=== PATIENT | male | born 1965 | race Caucasian/White ===

== ENCOUNTER 2017-03-09 07:13 | Emergency (ER) | payer OTHER ==
[2017-03-09 07:41] LABS: Appearance,Urine Clear (Clear); Bilirubin,Urine Negative (Negative); Glucose,Urine (UA) Negative (Negative); Ketones,Urine Negative (Negative); Leukocyte Esterase,Urine Negative (Negative); Nitrite,Urine Negative (Negative); PH, Urine 8.5 (5.0-8.0); Protein,Urine Trace (Negative); UA Billing (MACRO vs. MICRO) CHEM; Urobilinogen,Urine <2.0 mg/dL (<2.0)
[2017-03-09] MEDS ORDERED: PANTOPRAZOLE 40 MG/10 ML VIAL IVP STA (07:42)
[2017-03-09] MEDS ORDERED: SODIUM CHLORIDE 0.9% 1,000 ML IV STA (07:42)
[2017-03-09] MEDS ORDERED: METOCLOPRAMIDE 5 MG/ML 2 ML VIAL IVP STA (07:42)
[2017-03-09] MEDS ORDERED: KETOROLAC 30 MG/ML 1 ML VIAL IVP STA (07:42)
--- NOTE | 2017-03-09 07:46 | ED ---
General Adult HPI - General Chief complaint: Abdominal Pain Stated complaint: side pain Time Seen by Provider: 03/09/17 07:29 Source: patient, family, RN notes reviewed Mode of arrival: ambulatory Limitations: no limitations - History of Present Illness Initial comments: Patient is a pleasant 61-year-old male presenting to the emergency Department with right side pain. Onset of symptoms was yesterday and mild. Symptoms worsened last night and then have worsened throughout the night. Discomfort became severe prior to arrival. Patient became nauseated and did have a mild amount of emesis. Since that time discomfort has improved is only moderate at this time, rated 5 or 6/10. No history of similar symptoms previously. Discomfort is on the right side, more upper abdomen. No fevers. Patient has had mild dysuria since yesterday. - Related Data Previous Rx's Medication Instructions Recorded Hydrocodone/Acetaminophen [[place] 2 each PO Q6HR PRN #20 tab 03/09/17 5-325] Metoclopramide HCl [Reglan] 10 mg PO Q6HR PRN #15 tablet 03/09/17 Tamsulosin [Flomax] 0.4 mg PO DAILY #14 cap 03/09/17 Allergies Allergy/AdvReac Type Severity Reaction Status Date / Time No Known Allergies Allergy Verified 03/09/17 08:15 Review of Systems ROS Statement: Those systems with pertinent positive or pertinent negative responses have been documented in the HPI. ROS Other: All systems not noted in ROS Statement are negative. Constitutional: Denies: fever Eyes: Denies: eye pain ENT: Denies: ear pain Respiratory: Denies: cough, dyspnea Cardiovascular: Denies: chest pain, palpitations Endocrine: Denies: fatigue Gastrointestinal: Reports: abdominal pain, nausea, vomiting. Denies: diarrhea, constipation Genitourinary: Reports: dysuria. Denies: frequency, hematuria Musculoskeletal: Denies: back pain Skin: Denies: rash Neurological: Denies: weakness Past Medical History Past Medical History: Diabetes Mellitus, Hypertension History of Any Multi-Drug Resistant Organisms: None Reported Past Surgical History: Back Surgery, Cholecystectomy Past Psychological History: No Psychological Hx Reported Smoking Status: Current some day smoker Past Alcohol Use History: Rare Past Drug Use History: None Reported General Exam Limitations: no limitations General appearance: alert, in no apparent distress Head exam: Present: atraumatic Eye exam: Present: normal appearance, PERRL ENT exam: Present: normal oropharynx Neck exam: Present: normal inspection Respiratory exam: Present: normal lung sounds bilaterally Cardiovascular Exam: Present: regular rate, normal rhythm Expanded Peripheral pulses: 2+: Posterior Tibialis (R), Posterior Tibialis (L) GI/Abdominal exam: Present: soft, tenderness (Mild tenderness right flank/upper abdomen), normal bowel sounds. Absent: distended, guarding, rebound, rigid, pulsatile mass Extremities exam: Present: normal inspection. Absent: pedal edema, calf tenderness Back exam: Present: normal inspection. Absent: tenderness, CVA tenderness (R) Neurological exam: Present: alert Psychiatric exam: Present: normal affect, normal mood Skin exam: Present: normal color Course Vital Signs 03/09/17 07:15 Temperature 97.5 F L Pulse Rate 72 Respiratory 20 Rate Blood Pressure 158/89 O2 Sat by Pulse 98 Oximetry Medical Decision Making - Medical Decision Making Patient reevaluated and symptom-free. Patient resting comfortably in bed. Patient and family updated on results including pulmonary nodule and need for follow-up with this. - Lab Data Result diagrams: 03/09/17 07:50 03/09/17 07:50 Lab Results 03/09/17 03/09/17 03/09/17 Range/Units 07:21 07:50 07:50 WBC 5.1 (3.8-10.6) k/uL RBC 5.12 (4.30-5.90) m/uL Hgb 16.1 (13.0-17.5) gm/dL Hct 46.7 (39.0-53.0) % MCV 91.3 (80.0-100.0) fL MCH 31.4 (25.0-35.0) pg MCHC 34.4 (31.0-37.0) g/dL RDW 13.1 (11.5-15.5) % Plt Count 203 (150-450) k/uL Neutrophils % 69 % Lymphocytes % 18 % Monocytes % 9 % Eosinophils % 2 % Basophils % 0 % Neutrophils # 3.5 (1.3-7.7) k/uL Lymphocytes # 0.9 L (1.0-4.8) k/uL Monocytes # 0.4 (0-1.0) k/uL Eosinophils # 0.1 (0-0.7) k/uL Basophils # 0.0 (0-0.2) k/uL PT (9.0-12.0) sec INR (<1.1) APTT (22.0-30.0) sec Sodium 146 H (137-145) mmol/L Potassium 3.9 (3.5-5.1) mmol/L Chloride 106 (98-107) mmol/L Carbon Dioxide 32 H (22-30) mmol/L Anion Gap 8 mmol/L BUN 20 (9-20) mg/dL Creatinine 1.06 (0.66-1.25) mg/dL Est GFR (MDRD) Af Amer >60 (>60 ml/min/1.73 sqM) Est GFR (MDRD) Non-Af >60 (>60 ml/min/1.73 sqM) Glucose 156 H (74-99) mg/dL Calcium 8.8 (8.4-10.2) mg/dL Total Bilirubin 0.9 (0.2-1.3) mg/dL AST 34 (17-59) U/L ALT 37 (21-72) U/L Alkaline Phosphatase 74 (38-126) U/L Total Protein 6.8 (6.3-8.2) g/dL Albumin 3.8 (3.5-5.0) g/dL Amylase 62 (30-110) U/L Lipase 163 (23-300) U/L Urine Color Light Yellow Urine Appearance Clear (Clear) Urine pH 8.5 H (5.0-8.0) Ur Specific [place] 1.010 (1.001-1.035) Urine Protein Trace H (Negative) Urine Glucose (UA) Negative (Negative) Urine Ketones Negative (Negative) Urine Blood Negative (Negative) Urine Nitrite Negative (Negative) Urine Bilirubin Negative (Negative) Urine Urobilinogen <2.0 (<2.0) mg/dL Ur Leukocyte Esterase Negative (Negative) 03/09/17 Range/Units 07:50 WBC (3.8-10.6) k/uL RBC (4.30-5.90) m/uL Hgb (13.0-17.5) gm/dL Hct (39.0-53.0) % MCV (80.0-100.0) fL MCH (25.0-35.0) pg MCHC (31.0-37.0) g/dL RDW (11.5-15.5) % Plt Count (150-450) k/uL Neutrophils % % Lymphocytes % % Monocytes % % Eosinophils % % Basophils % % Neutrophils # (1.3-7.7) k/uL Lymphocytes # (1.0-4.8) k/uL Monocytes # (0-1.0) k/uL Eosinophils # (0-0.7) k/uL Basophils # (0-0.2) k/uL PT 10.6 (9.0-12.0) sec INR 1.0 (<1.1) APTT 25.0 (22.0-30.0) sec Sodium (137-145) mmol/L Potassium (3.5-5.1) mmol/L Chloride (98-107) mmol/L Carbon Dioxide (22-30) mmol/L Anion Gap mmol/L BUN (9-20) mg/dL Creatinine (0.66-1.25) mg/dL Est GFR (MDRD) Af Amer (>60 ml/min/1.73 sqM) Est GFR (MDRD) Non-Af (>60 ml/min/1.73 sqM) Glucose (74-99) mg/dL Calcium (8.4-10.2) mg/dL Total Bilirubin (0.2-1.3) mg/dL AST (17-59) U/L ALT (21-72) U/L Alkaline Phosphatase (38-126) U/L Total Protein (6.3-8.2) g/dL Albumin (3.5-5.0) g/dL Amylase (30-110) U/L Lipase (23-300) U/L Urine Color Urine Appearance (Clear) Urine pH (5.0-8.0) Ur Specific [place] (1.001-1.035) Urine Protein (Negative) Urine Glucose (UA) (Negative) Urine Ketones (Negative) Urine Blood (Negative) Urine Nitrite (Negative) Urine Bilirubin (Negative) Urine Urobilinogen (<2.0) mg/dL Ur Leukocyte Esterase (Negative) - Radiology Data Radiology results: report reviewed (3 mm right UVJ calcification with mild to moderate right hydronephrosis. Bilateral lower lobe nodules.) Disposition Clinical Impression: Ureterolithiasis Disposition: HOME SELF-CARE Condition: Stable Instructions: Kidney Stones (ED) Additional Instructions: Please follow-up with primary care physician in the next couple of days for recheck. Return for fevers, uncontrolled vomiting, uncontrolled pain, worsening symptoms or other concerns. Please also follow-up with primary care physician regarding pulmonary nodule and need for further evaluation. Prescriptions: Hydrocodone/Acetaminophen [[place] 5-325] 2 each PO Q6HR PRN #20 tab PRN Reason: Pain Metoclopramide HCl [Reglan] 10 mg PO Q6HR PRN #15 tablet PRN Reason: Nausea Tamsulosin [Flomax] 0.4 mg PO DAILY #14 cap Referrals: None,Stated [Primary Care Provider] - 1-2 days Time of Disposition: 09:15
[2017-03-09 08:11] LABS: Basophils % (A) 0 %; CH 32.6; CHCM 35.8; Eosinophils # (A) 0.1 k/uL (0-0.7); Eosinophils % (A) 2 %; HCT 46.7 % (39.0-53.0); HDW 2.84; HGB 16.1 gm/dL (13.0-17.5); Luc # (Auto) 0.09; Luc % (Auto) 2; Lymphocytes # (A) 0.9 k/uL (1.0-4.8); Lymphocytes % (A) 18 %; MCH 31.4 pg (25.0-35.0); MCHC 34.4 g/dL (31.0-37.0); MCV 91.3 fL (80.0-100.0); Mean Platelet Volume 6.2; Monocytes # (A) 0.4 k/uL (0-1.0); Monocytes % (A) 9 %; Neutrophils # (A) 3.5 k/uL (1.3-7.7); Neutrophils % (A) 69 %; RBC 5.12 m/uL (4.30-5.90); RDW 13.1 % (11.5-15.5); WBC 5.1 k/uL (3.8-10.6); WBC (Perox) 4.69
[2017-03-09 08:19] LABS: Prothrombin Time 10.6 sec (9.0-12.0)
[2017-03-09 08:27] LABS: ALT 37 U/L (21-72); AST 34 U/L (17-59); Alkaline Phosphatase 74 U/L (38-126); Amylase 62 U/L (30-110); Anion Gap 8 mmol/L; Blood Urea Nitrogen 20 mg/dL (9-20); Calcium 8.8 mg/dL (8.4-10.2); Carbon Dioxide 32 mmol/L (22-30); Chloride 106 mmol/L (98-107); Glucose 156 mg/dL (74-99); Non-African American GFR(MDRD) >60 (>60 ml/min/1.73 sqM); Potassium 3.9 mmol/L (3.5-5.1); Sodium 146 mmol/L (137-145); Total Bilirubin 0.9 mg/dL (0.2-1.3); Total Protein 6.8 g/dL (6.3-8.2)
--- NOTE | 2017-03-09 09:04 | CT ---
EXAMINATION TYPE: CT abdomen pelvis wo con DATE OF EXAM: 03/09/2017 COMPARISON: NONE HISTORY: Rt sided pain CT DLP: 1573.1 mGycm Automated exposure control for dose reduction was used. TECHNIQUE: Helical acquisition of images was performed from the lung bases through the pelvis. FINDINGS: LUNG BASES: 3 mm nodule left lower lobe and 2 mm nodule right lower lobe. LIVER/GB: Surgical clips in the gallbladder fossa. PANCREAS: No significant abnormality is seen. SPLEEN: No significant abnormality is seen. ADRENALS: No significant abnormality is seen. KIDNEYS: 3 mm right UVJ calcification with mild to moderate right hydronephrosis. URINARY BLADDER: No significant abnormality is seen. ADENOPATHY: None visualized. OSSEOUS STRUCTURES: Degenerative postsurgical changes of the spine. Postsurgical change involving the iliac bone. BOWEL: Diverticulosis of the colon. IMPRESSION: 1. There is a 3 mm right UVJ calcification with mild to moderate right hydronephrosis. 2. Bilateral lower lobe pulmonary nodules. Follow-up CT scan in 6 months recommended to confirm stabi lity.
[2017-03-09 09:28] VITALS: BP 144/75; PULSE 61; RESP 18; TEMP 98.1
== END 2017-03-09 09:29 | disposition home or self-care (01) ==
LOC: EC 07:13
DX: N13.2 Hydronephrosis with renal and ureteral calculous obstruction (principal); R11.2 Nausea with vomiting, unspecified; K57.30 Diverticulosis of large intestine without perforation or abscess without bleeding; F17.200 Nicotine dependence, unspecified, uncomplicated; Z90.49 Acquired absence of other specified parts of digestive tract
CPT/HCPCS: 99284; 96374; 96375 ×2; 96361 ×2; 36415; 80053; 82150; 83690; 85025; 85610; 85730; 81003; 74176; J2765; J1885; C9113

== ENCOUNTER → 2019-11-26 | Outpatient (CLI) | payer BC ==
--- NOTE | 2019-11-26 16:42 | US ---
EXAMINATION TYPE: US carotid duplex BILAT DATE OF EXAM: 11/26/2019 COMPARISON: NONE CLINICAL HISTORY: R91.8 lung mass. Dizziness EXAM MEASUREMENTS: RIGHT: Peak Systolic Velocity (PSV) cm/sec ----- Right CCA: 107.0 ----- Right ICA: 67.0 ----- Right ECA: 87.1 ICA/CCA ratio: 0.6 RIGHT: End Diastole cm/sec ----- Right CCA: 28.0 ----- Right ICA: 23.3 ----- Right ECA: 16.1 LEFT: Peak Systolic Velocity (PSV) cm/sec ----- Left CCA: 108.9 ----- Left ICA: 124.9 ----- Left ECA: 127.8 ICA/CCA ratio: 1.1 LEFT: End Diastole cm/sec ----- Left CCA: 28.4 ----- Left ICA: 44.9 ----- Left ECA: 26.0 VERTEBRALS (direction of flow): Right Vertebral: Antegrade Left Vertebral: Antegrade Rhythm: Normal No significant stenosis. Intimal thickening is present. There is filling of the acoustic windows compatible with turbulent melissa w. IMPRESSION: 1. 50% narrowing based on velocities within the left internal carotid artery and left external caroti d artery. 2. No significant flow-limiting stenosis right carotid system Criteria for Assigning % of Stenosis / Diameter reduction (Estimation based on the indirect measurements of the internal carotid artery velocities (ICA PSV). 1. Normal (no stenosis)=ICA PSV < 125 cm/s: ratio < 2.0: ICA EDV<40 cm/s. 2. Less than 50% stenosis=ICA PSV < 125 cm/s: ratio < 2.0: ICA EDV<40 cm/s. 3. 50 to 69% stenosis=ICA PSV of 125 to 230 cm/s: ration 2.0 ? 4.0: ICA EDV 40-100 cm/s. 4. Greater than 70% stenosis to near occlusion= ICA PSV > 230 cm/s: ratio > 4.0: ICA EDV > 100 cm/s. 5. Near occlusion= ICA PSV velocities may be low or undetectable: variable ratio and ICA EDV. 6. Total occlusion=unable to detect flow.
== END | disposition home or self-care (01) ==
LOC: RADUSMAIN 15:52
PROVIDERS: ATTEND Family Medicine
DX: I65.22 Occlusion and stenosis of left carotid artery (principal); R91.8 Other nonspecific abnormal finding of lung field
CPT/HCPCS: 93880

== ENCOUNTER → 2019-11-29 | Outpatient (CLI) | payer BC ==
--- NOTE | 2019-11-29 10:47 | ECHOF ---
Referral Reason:R91.8 lung mass MEASUREMENTS -------- HEIGHT: 185.4 cm WEIGHT: 154.2 kg BP: RVIDd: 4.0 cm (< 3.3) IVSd: 1.4 cm (0.6 - 1.1) LVIDd: 4.5 cm (3.9 - 5.3) LVPWd: 1.6 cm (0.6 - 1.1) IVSs: 1.6 cm LVIDs: 3.2 cm LVPWs: 2.2 cm LAESV Index (A-L): 17.81 ml/m Ao Diam: 3.0 cm (2.0 - 3.7) AV Cusp: 1.9 cm (1.5 - 2.6) MV EXCURSION: 14.837 mm (> 18.000) MV EF SLOPE: 63 mm/s (70 - 150) EPSS: 0.7 cm MV E Ronal: 0.59 m/s MV DecT: 201 ms MV A Ronal: 0.58 m/s MV E/A Ratio: 1.01 RAP: 5.00 mmHg RVSP: 21.93 mmHg FINDINGS -------- Sinus rhythm with extra systolic beats. This was a technically difficult study with suboptimal views. Morbid Obesity The left ventricular size is normal. There is moderate concentric left ventricular hypertrophy. O verall left ventricular systolic function is low-normal with, an EF between 50 - 55 %. The diastoli c filling pattern is normal for the age of the patient 10.20. The right ventricle is moderately enlarged. Normal LA size by volume 22+/-6 ml/m2. The right atrium was not well visualized. 5.0mg of Lumason was utilized for enhancement of images Interatrial and interventricular septum intact. The aortic valve was not well visualized. There is no evidence of aortic regurgitation. There is no evidence of aortic stenosis. No mitral regurgitation. Mild tricuspid regurgitation present. There is no evidence of pulmonary hypertension. The right v entricular systolic pressure, as measured by Doppler, is 21.93mmHg. There is no pulmonic regurgitation present. The aortic root size is normal. IVC Not well visulized. There is no pericardial effusion. CONCLUSIONS -------- 1. Sinus rhythm with extra systolic beats. 2. This was a technically difficult study with suboptimal views. 3. Morbid Obesity 4. The left ventricular size is normal. 5. There is moderate concentric left ventricular hypertrophy. 6. Overall left ventricular systolic function is low-normal with, an EF between 50 - 55 %. 7. The diastolic filling pattern is normal for the age of the patient 10.20 8. The right ventricle is moderately enlarged. 9. Normal LA size by volume 22+/-6 ml/m2. 10. The right atrium was not well visualized. 11. 5.0mg of Lumason was utilized for enhancement of images 12. Interatrial and interventricular septum intact. 13. The aortic valve was not well visualized. 14. There is no evidence of aortic regurgitation. 15. There is no evidence of aortic stenosis. 16. No mitral regurgitation. 17. Mild tricuspid regurgitation present. 18. There is no evidence of pulmonary hypertension. 19. The right ventricular systolic pressure, as measured by Doppler, is 21.93mmHg. 20. There is no pulmonic regurgitation present. 21. The aortic root size is normal. 22. IVC Not well visulized. 23. There is no pericardial effusion. WELL REACTIVATOR OPERATOR: Shivani Oliver RDCS
== END | disposition home or self-care (01) ==
LOC: RADECHMAIN 08:35
PROVIDERS: ATTEND Family Medicine
DX: R91.8 Other nonspecific abnormal finding of lung field (principal)
CPT/HCPCS: 93306; Q9950

== ENCOUNTER → 2020-03-01 | Outpatient (CLI) | payer BC ==
[2020-03-01 08:53] LABS: African American GFR (CKD) >90 (>60 ml/min/1.73 sqM); Blood Urea Nitrogen 13 mg/dL (9-20); Non-African American GFR(CKD) >90 (>60 ml/min/1.73 sqM)
--- NOTE | 2020-03-01 10:16 | CT ---
EXAMINATION TYPE: CT chest w con DATE OF EXAM: 03/01/2020 COMPARISON: None HISTORY: Lung nodule CT DLP: 887.30 mGycm, Automated exposure control for dose reduction was used. CONTRAST: Performed injected with 100 ml mL of Isovue 300. TECHNIQUE: Axial images were obtained at 5 mm thick sections. Reconstructed images are reviewed on [employer] computer in the coronal plane. FINDINGS: Portion of the thyroid visualized is normal. There is a tiny subpleural margin nodule measuring 0.2 cm. Series 4 image 29. There is a 0.4 cm with a oval in the right middle lobe. Series 4 image 22. Same level a 0.5 cm nodule is adjacent. No enlarged mediastinal or hilar adenopathy is evident. The ascending aorta diameter at the level o f the main pulmonary artery is 4.2 cm. The main pulmonary artery diameter at the bifurcation is 3.[address] sections are obtained through the upper abdomen. Abdomen is essentially unremarkable. IMPRESSIONS: 1. Small nodule within the right middle lobe. Follow-up exam in 6 months is recommended. 2. Ascending thoracic aortic aneurysm measuring 4.2 cm.
== END | disposition home or self-care (01) ==
LOC: RADCTMAIN 07:53
PROVIDERS: ATTEND Internal Medicine Critical Care Medicine
DX: R91.1 Solitary pulmonary nodule (principal); I71.2 Thoracic aortic aneurysm, without rupture
CPT/HCPCS: 82565; 84520; 71260; 36415; Q9967

== ENCOUNTER → 2021-08-13 | Outpatient (CLI) | payer BC ==
[2021-08-13 08:04] LABS: African American GFR (CKD) >90 (>60 ml/min/1.73 sqM); Blood Urea Nitrogen 17 mg/dL (9-20); Non-African American GFR(CKD) 89 (>60 ml/min/1.73 sqM)
--- NOTE | 2021-08-13 09:40 | CT ---
EXAMINATION TYPE: CT chest w con DATE OF EXAM: 08/13/2021 COMPARISON: Chest CT March 01, 2020 HISTORY: Abnormal lung field CT DLP: 884.8 mGycm. Automated Exposure Control for Dose Reduction was Utilized. TECHNIQUE: CT scan of the thorax is performed following with IV Contrast, patient injected with 100 mL of Isovue 300. FINDINGS: LUNGS: Stable 2 adjacent nodules in the anterior right mid lung measuring 1.4 x 0.5 cm axial image 22 and 5 x 4 mm in size axial image 23. Stable 4 to 5 mm right lower lobe nodule axial image 36 in ret rospect. No new greater than 5 mm pulmonary nodules. There is no pleural effusion or pneumothorax see n. The tracheobronchial tree is patent. MEDIASTINUM: There are persistent nonspecific prominent bilateral hilar lymph nodes. Greater than 1 cm mediastinal adenopathy No cardiomegaly or pericardial effusion is seen. Ascending aorta measures up to 4.0 cm in diameter axial image 21. OTHER: Cholecystectomy clips redemonstrated. Moderate multilevel spurring in the spine again seen. Sm all degree of subareolar flame-shaped gynecomastia redemonstrated. IMPRESSION: Stable scattered small lung nodules including largest 1.4 x 0.5 cm anterior right mid wenceslao g nodule. No new or enlarging greater than 5 mm nodules.
== END | disposition home or self-care (01) ==
LOC: RADCTMAIN 06:30
PROVIDERS: ATTEND Internal Medicine Critical Care Medicine
DX: R91.8 Other nonspecific abnormal finding of lung field (principal)
CPT/HCPCS: 82565; 84520; 71260; 36415; Q9967

== ENCOUNTER → 2023-09-02 | Outpatient (CLI) | payer BC ==
[2023-09-02 10:28] LABS: African American GFR (CKD) >90 (>60 ml/min/1.73 sqM); Blood Urea Nitrogen 18 mg/dL (9-20); Non-African American GFR(CKD) 79 (>60 ml/min/1.73 sqM)
--- NOTE | 2023-09-02 11:51 | CT ---
EXAMINATION TYPE: CT chest w con DATE OF EXAM: 09/02/2023 COMPARISON: 08/13/2021 HISTORY: 58-year-old male R91.8, Abnormal lung alxeis. TECHNIQUE: Contiguous axial scanning of the chest after the administration of 100ml mL of Isovue 300. Coronal/sagittal reconstructions performed. CT DLP: 792mGycm. Automatic exposure control utilized for a dose reduction. FINDINGS: Heart normal size without pericardial effusion. Ectatic ascending aorta 3.7 cm. Conventional arch vessel branching anatomy. Ectatic upper descending thoracic aorta 3.0 cm. Prominent right hilar lymph node and a 1.1 cm remains unchanged. No thoracic lymphadenopathy otherwis e seen. * 2 adjacent areas of nodularity anterior right midlung measuring 1.0 cm and 0.7 cm remain unchanged from 2020 compatible with a benign etiology. * 5 mm left lower lobe pulmonary nodule is unchanged. * 4 mm right lower lobe pulmonary nodule is unchanged. No consolidation or pleural effusion. Visualized upper abdomen shows fatty infiltration of liver. Anterior and hilar splenules are noted. C holecystectomy clips. Bones: DISH mid and lower thoracic spine. IMPRESSION: 1. Scattered pulmonary nodules measuring up to 1 cm remain unchanged from 2020 compatible with a willem gn etiology. 2. Hepatic steatosis.
== END | disposition home or self-care (01) ==
LOC: RADCTMAIN 09:38
PROVIDERS: ATTEND Internal Medicine Critical Care Medicine
DX: R91.8 Other nonspecific abnormal finding of lung field (principal); K76.0 Fatty (change of) liver, not elsewhere classified
CPT/HCPCS: 82565; 84520; 71260; 36415; Q9967